=== PATIENT | male | born 1970 | race Caucasian/White ===

== ENCOUNTER → 2017-02-26 | Outpatient (CLI) | payer OTHER ==
--- NOTE | 2017-02-26 15:56 | RADIOLOGY IMAGING REPORT ---
FACILITY: [facility] PATIENT NAME: Zana Alas : 1970 MR: [id number] V: [id number] EXAM DATE: ORDERING PHYSICIAN: JUDY DUGGAN TECHNOLOGIST: [facility] Patient: Zana Alas : 1970 Visit/Account:[id number] Date of Sevice: 02/26/2017 THYROID ultrasound HISTORY: Palpable right-sided thyroid mass COMPARISON: None. FINDINGS: SIZE: Right lobe: 5.9 x 4.6 x 4.4 cm Left lobe: 4.5 x 1.7 x 1.5 cm Isthmus: 2 mm PARENCHYMA: Heterogeneous on the right inhomogeneous on the left NODULES: Right lobe: * In the mid to inferior right lobe there is a complex nodule with smooth borders measuring 4.3 x 4. 4 x 4.2 cm. Only a small amount of internal vascularity is noted within this mass. Left lobe: * None discrete. Isthmus: * None discrete. VASCULARITY: Within normal limits. ADDITIONAL FINDINGS: None. IMPRESSION: In the mid to inferior right lobe there is a complex 4.3 x 4.4 x 4.2 cm mass. Ultrasound-guided fine -needle aspiration is recommended REFERENCE: 2015 [place] [employer] Management Guidelines for Adult Patients with Thyroid Nodules and D ifferentiated Thyroid Cancer: The [place] [employer] Guidelines Task Force on Thyroid Nodul es and Differentiated Thyroid Cancer. SONOGRAPHIC PATTERNS: * Benign: Purely cystic nodules (no solid component); estimated risk of malignancy <1 percent; no bi opsy recommended. * Very Low Suspicion: Spongiform or partially cystic nodules without any of the sonographic features described in low, intermediate, or high suspicion patterns; estimated risk of malignancy <3 percent; consider FNA at > 2 cm (Observation without FNA is also a reasonable option). * Low Suspicion: Isoechoic or hyperechoic solid nodule, or partially cystic nodule with eccentric so lid areas, without microcalcification, irregular margin or ETE (extra-thyroidal extension), or taller than wide shape; estimated risk of malignancy 5-10 percent; recommend FNA at >1.5 cm. * Intermediate Suspicion: Hypoechoic solid nodule with smooth margins without microcalcifications, E TE (extra-thyroidal extension), or taller than wide shape; estimated risk of malignancy 10-20 percent ; recommend FNA at > 1 cm. * High Suspicion: Solid hypoechoic nodule or solid hypoechoic component of a partially cystic nodule with one or more of the following features: irregular margins (infiltrative, microlobulated), microc alcifications, taller than wide shape, rim calcifications with small extrusive soft tissue component, evidence of ETE (extra-thyroidal extension); estimated risk of malignancy >70-90 percent; recommend FNA at > 1 cm. NOTES: * Although a sonographically suspicious subcentimeter thyroid nodule without evidence of extrathyroi laney extension or sonographically suspicious lymph nodes may be observed with close sonographic follow -up rather than pursuing immediate FNA, patient age and preference may modify decision-making. A > 50% interval increase in nodule volume and/or development of new suspicious sonographic features are felt to be a valid reasons for potential re-aspiration of a nodule previously shown to have benig n FNA cytology. Report Dictated By: Carla High MD at 02/26/2017 3:51 PM Report E-Signed By: Carla High MD at 02/26/2017 3:53 PM WSN:[email or web address]
--- NOTE | 2017-02-26 15:58 | RADIOLOGY IMAGING REPORT ---
FACILITY: [facility] PATIENT NAME: Zana Alas : 1970 MR: [id number] V: [id number] EXAM DATE: ORDERING PHYSICIAN: JUDY DUGGAN TECHNOLOGIST: Location: [facility] Patient: Zana Alas : 1970 Visit/Account:[id number] Date of Sevice: 02/26/2017 Exam type: THYROID BIOPSY FINE NEEDLE ASP History: Right thyroid mass Comparison: Thyroid ultrasound performed today. Findings: Informed consent was obtained. Right-sided the patient's neck was prepped and draped in usual steril e fashion._Local anesthesia was accomplished with 1% lidocaine. Under sonographic guidance three 25- gauge FNA biopsies were obtained through the complex nodule in the mid to inferior right lobe of the thyroid gland. Samples were given to the manager pathology for processing. The procedure was a ccomplished without apparent complication , IMPRESSION: 1. Successful sonographically guided right-sided thyroid biopsy Report Dictated By: Carla High MD at 02/26/2017 3:53 PM Report E-Signed By: Carla High MD at 02/26/2017 3:55 PM WSN:[email or web address]
== END ==
LOC: US 01:11
PROVIDERS: ATTEND Otolaryngology
DX: E04.1 Nontoxic single thyroid nodule (principal)
CPT/HCPCS: 10022; 76536; 76942; 88104; 88172

== ENCOUNTER → 2017-03-02 | Outpatient (REF) ==
[2017-03-02 09:24] LABS: LDL CHOLESTEROL 97 mg/dl
== END ==
DX: Z02.9 Encounter for administrative examinations, unspecified (principal)

== ENCOUNTER → 2017-03-02 | Outpatient (CLI) | payer OTHER ==
--- NOTE | 2017-03-02 08:57 | EKG ---
FACILITY: [facility] PATIENT NAME: SHANTAL RENE : [id number] MR: [id number] V: [id number] EXAM DATE: ORDERING PHYSICIAN: JUDY DUGGAN TECHNOLOGIST: PEGGY Test Reason : Blood Pressure : / mmHG Vent. Rate : 056 BPM Atrial Rate : 056 BPM P-R Int : 170 ms QRS Dur : 088 ms QT Int : 432 ms P-R-T Axes : 034 016 025 degrees QTc Int : 416 ms Sinus bradycardia Otherwise normal ECG No previous ECGs available Referred By: OLGA LIDIA Confirmed By:
[2017-03-02 08:59] LABS: INR 1.02
== END ==
LOC: LAB 08:20
PROVIDERS: ATTEND Otolaryngology
DX: R00.1 Bradycardia, unspecified (principal); E04.1 Nontoxic single thyroid nodule
CPT/HCPCS: 36415; 85610; 85730

== ENCOUNTER 2017-03-19 00:23 | Observation (INO) | payer OTHER ==
[~2017-03-19] VITALS: Ht 175.3 cm; Wt 95.7 kg
[~2017-03-19 00:23] MED LIST: ASPI81TA94 PO
[2017-03-19 06:09] VITALS: BP 124/86
[2017-03-19] MEDS ORDERED: MIDAZOLAM 2 MG/2 ML VIAL IVP PRN (06:30)
[2017-03-19] MEDS ORDERED: NORMOSOL R SOLN(*) 1000 ML BAG 1,000 ML IV PRN (06:30)
[2017-03-19] MEDS ORDERED: LIDOCAINE/SOD BICARB 8.4% SYR ID ONE (06:30)
[2017-03-19] MEDS ORDERED: FAMOTIDINE 20 MG TAB PO ONE (06:30)
[2017-03-19] MEDS ORDERED: ceFAZolin(*) 2GM/D5W 50ML 50 ML IVPB ONE (06:30)
[2017-03-19] MEDS ORDERED: LIDO/EPI 1% MDV 1:100,000 20ML INFIL ONE (06:41)
[2017-03-19] MEDS ORDERED: LIDOCAINE MPF 1% 5 ML VIAL ONE (07:09)
[2017-03-19] MEDS ORDERED: DEXAMETHASONE SOD 4 MG/ML VIAL ONE (07:09)
[2017-03-19] MEDS ORDERED: ONDANSETRON 4 MG/2 ML VIAL ONE (07:09)
[2017-03-19] MEDS ORDERED: fentaNYL CITR 250 MCG/5 ML AMP ONE (07:09)
[2017-03-19] MEDS ORDERED: PROPOFOL EMUL(*) 10MG/ML 20 ML 20 ML ONE (07:09)
[2017-03-19] MEDS ORDERED: SUGAMMADEX SOD 200 MG/2 ML SDV ONE (07:09)
[2017-03-19] MEDS ORDERED: ROCURONIUM BROM 10 MG/ML 10 ML ONE (07:09)
[2017-03-19] MEDS ORDERED: KETAMINE HCL 200 MG/20 ML MDV ONE (07:14)
[2017-03-19] MEDS ORDERED: BACITRACIN OINT 15 GM TUBE TP ONE (07:52)
[2017-03-19] MEDS ORDERED: LR(*) 1000 ML BAG 1,000 ML IV PRN (09:01)
--- NOTE | 2017-03-19 09:04 | Post Operative Note ---
Operative Note - ENT Operative Day Date: Mar 19, 2017 Physicians Surgeon: Jose Fire Safety Director: Stevie Anesthesia: GETA Diagnosis Pre-Op Diagnosis: uninodular goiter Post-Op Diagnosis: same Procedure Procedure(s): right thyroid lobectomy Specimen Removed:(Maybe N/A): right thyroid lobe Complications: none Fluids Fluids: see anesthesia note Estimated Blood Loss: 50 ml JUDY DUGGAN JR, MD Mar 19, 2017 09:04
[2017-03-19] MEDS ORDERED: APAP/HYDROCODONE 325/5 TAB PO PRN (09:05)
[2017-03-19] MEDS ORDERED: MORPHINE 2 MG/ML SYR IVP PRN (09:05)
[2017-03-19] MEDS ORDERED: ONDANSETRON 4 MG ODT TABDP SL PRN (09:05)
[2017-03-19 09:45] VITALS: BP 144/95
[2017-03-19 12:51] VITALS: BP 138/97
[2017-03-19 13:24] VITALS: Ht 175.3 cm; Wt 95.7 kg
[2017-03-19 14:42] VITALS: BP 123/88
[2017-03-19] MEDS ORDERED: ceFAZolin 1 GM VIAL IVPB SCH (15:00)
--- NOTE | 2017-03-19 15:48 | OPERATIVE REPORT 1 ---
EVENT DATE: March 19, 2017 SURGEON: Junior Garcia MD ANESTHESIOLOGIST: Luiz Patel MD ANESTHESIA: General endotracheal. ANVIL SEATING PRESS OPERATOR: Rosalina Hubbard CNA PROCEDURE PERFORMED Right thyroid lobectomy. PREOPERATIVE DIAGNOSIS Uninodular goiter. POSTOPERATIVE DIAGNOSIS Uninodular goiter. INDICATIONS Please refer to the preoperative note. DESCRIPTION OF PROCEDURE The patient was positively identified in the preoperative area. He was accompanied there by his . Risks were again explained and include, but were not limited to bleeding, infection, injury to the recurrent laryngeal nerve , transient or permanent dysphonia, injury to the parathyroid glands, transient or permanent hypocalcemia, and those associated with anesthesia. He acknowledged understanding of those risks. He was then brought back to the operative suite and laid supine on the operative table, and anesthesia was administered. Of note, the laryngeal nerve monitor was applied to the patient and utilized throughout the case. A favorable neck crease was found overlying the thyroid mass on the right. A 7 cm incision was planned and marked. Approximately 2 mL of 1% lidocaine with epinephrine were infiltrated. The patient was then prepped and draped in the usual sterile fashion. The aforementioned incision was then made with a 15 blade. The underlying subcutaneous tissue was then dissected with Bovie electrocautery. The platysma muscle was identified and divided with Bovie electrocautery. Subplatysmal flaps were elevated superiorly to the level of the thyroid notch and inferiorly to the level of the sternal notch. The strap musculature was identified and divided along the median raphe. I then elevated the strap musculature off of the dominant right thyroid mass. The mass was carefully dissected from the surrounding connective tissue and delivered through the incision and medially. I then came across the superior pole vessels with the Harmonic scalpel. I then carefully dissected and encountered the recurrent laryngeal nerve. This was confirmed with the nerve probe. This was carefully traced to its entrance into the trachea. I then came across the inferior pole vessels with the Harmonic scalpel. I then carefully medialized the lobe and divided it from the trachea at De La O ligament. The lobe was then sent for frozen section. This was consistent with a benign thyroid mass. The wound was then copiously irrigated with normal saline solution. A Valsalva maneuver was performed. Hemostasis was assumed. Surgicel Fibrillar was placed in the wound bed. A Marco Antonio-Mathur drain was placed and secured to the skin with a suture. The strap musculature and platysma were then reapproximated with an interrupted chromic stitch. The skin was then closed in a multi-layer fashion. The patient was then turned to Anesthesia for emergence. Estimated blood loss was 50 mL. There were no complications. MTDD
[2017-03-19] MEDS ORDERED: CEFU500T10 PO (16:21)
[2017-03-19] MEDS ORDERED: HYDR-385 PO (16:27)
[2017-03-19] MEDS ORDERED: ceFAZolin(*) 1 GM VIAL 1 GM in NS(*) 0.9% 100 ML ADDVANT BAG 100 ML IVPB SCH (17:00)
== END 2017-03-19 16:21 | disposition home or self-care (01) ==
LOC: OR 00:23 → MED 09:45
PROVIDERS: ADMIT Otolaryngology; ATTEND Otolaryngology
DX: E04.1 Nontoxic single thyroid nodule (principal)
CPT/HCPCS: 60210; 88307; 88331; 88332; G0378; J0690; J1100; J2001; J2405; J2704; J3010; J3490